=== PATIENT | female | born 1995 | race Two or more races ===

== ENCOUNTER 2023-06-12 08:14 | Emergency (ER) | payer OTHER ==
[~2023-06-12] VITALS: Ht 162.6 cm; Wt 104.1 kg
[2023-06-12 08:23] VITALS: BP 128/68; PULSE 112; RESP 16
[2023-06-12] MEDS ORDERED: cefTRIAXone SOD 1,000 MG VL IM ONE (08:45)
[2023-06-12] MEDS ORDERED: LIDOCAINE 1% HCL (LOCAL ANESTH.) INJ 20ML MDV ONE (08:48)
[2023-06-12 09:00] VITALS: O2SAT 99
[2023-06-12] MEDS ORDERED: LIDOCAINE 1% HCL (LOCAL ANESTH.) INJ 20ML MDV ID ONE (09:00)
[2023-06-12] MEDS ORDERED: LIDO2SOL26 MT (09:07)
[2023-06-12] MEDS ORDERED: AZIT500T66 PO (09:07)
== END 2023-06-12 09:23 | disposition home or self-care (01) ==
LOC: ER 08:14
DX: O26.893 Other specified pregnancy related conditions, third trimester (principal); J03.90 Acute tonsillitis, unspecified; Z3A.36 36 weeks gestation of pregnancy
CPT/HCPCS: 96372; 99283; J0696; J2001